=== PATIENT | male | born 1955 | race Hispanic/Latino ===

== ENCOUNTER 2017-05-31 15:26 | Inpatient (IN) | payer SELFPAY ==
[2017-05-31] MEDS ORDERED: NACL 0.9% 1000 ML 1,000 ML IV ONE ×3 (16:05→21:42)
--- NOTE | 2017-05-31 16:27 | Emergency Department Report ---
ED Abdominal Pain HPI - General Chief Complaint: Abdominal Pain Stated Complaint: ABD PAIN Time Seen by Provider: 05/31/17 16:08 Source: patient Mode of arrival: Ambulatory Limitations: No Limitations - History of Present Illness Initial Comments: 4-year-old male with past medical history of cirrhotic liver disease presenting to the ED complaining of abdominal pain. Also the pain started 1 day prior to ED arrival. Patient states pain is diffuse, crampy, nonradiating, no relaxing or worsening factors. Patient endorses one episode of dark bloody stools. Patient believes his pain is secondary to fluid buildup in his abdomen. He states the last time his pain has been similar he required drainage in the fluid in his abdomen. Pt denies: Pt denies: fever/chills, headache, neck pain ,chest pain, abdominal pain, N/V/D MD Complaint: abdominal pain -: Gradual Location: diffuse Radiation: none Migration to: no migration Severity: moderate Severity scale (0 -10): 6 Quality: fullness Consistency: constant Improves With: nothing Worsens With: nothing Associated Symptoms: nausea, melena. denies: vomiting, diarrhea, constipation, dysuria, hematemesis, hematochezia, hematuria, anorexia, syncope - Related Data Home Medications Medication Instructions Recorded Confirmed Last Taken Insulin Aspart Prot/Aspart(Nf) 30 unit SQ BID 08/08/13 07/11/16 Unknown [NovoLOG Mix 70/30 VIAL] Probenecid/Colchicine 100 mg PO DAILY 08/08/13 07/11/16 Unknown [Probenecid-Colchicine Tab] Previous Rx's Medication Instructions Recorded Last Taken Type Folic Acid [Folvite] 1 mg PO QDAY #30 tablet 08/11/13 Unknown Rx Nadolol [Corgard] 40 mg PO QDAY #30 tablet 08/11/13 Unknown Rx Nicotine [Habitrol] 21 mg TD DAILY #30 patch 08/11/13 Unknown Rx Pantoprazole [Protonix TAB] 40 mg PO QDAY #30 tablet 08/11/13 Unknown Rx Thiamine [Vitamin B-1] 100 mg PO QDAY #30 tablet 08/11/13 Unknown Rx Ferrous Sulfate [Feosol 325 MG tab] 325 mg PO BID #60 tablet 07/14/16 Unknown Rx Spironolactone [Aldactone] 25 mg PO QDAY #30 tablet 07/14/16 Unknown Rx oxyCODONE /ACETAMINOPHEN [Percocet 1 tab PO BID PRN #10 tablet 07/14/16 Unknown Rx 5/325 mg] Sulfamethoxazole/Trimethoprim 1 each PO BID #14 tablet 07/31/16 Unknown Rx [Bactrim DS TAB] Allergies Allergy/AdvReac Type Severity Reaction Status Date / Time codeine Allergy Rash Verified 01/28/15 10:28 ED Review of Systems ROS: Stated complaint: ABD PAIN Other details as noted in HPI Constitutional: denies: chills, fever Eyes: denies: eye pain, eye discharge, vision change ENT: denies: ear pain, throat pain Respiratory: denies: cough, shortness of breath, wheezing Cardiovascular: denies: chest pain, palpitations Endocrine: no symptoms reported Gastrointestinal: abdominal pain, nausea, melena. denies: diarrhea, constipation, hematemesis, hematochezia Genitourinary: denies: urgency, dysuria Musculoskeletal: denies: back pain, joint swelling, arthralgia Skin: denies: rash, lesions Neurological: denies: headache, weakness, paresthesias Psychiatric: denies: anxiety, depression Hematological/Lymphatic: denies: easy bleeding, easy bruising ED Past Medical Hx - Past Medical History Hx Hypertension: Yes Hx Congestive Heart Failure: Yes Hx Diabetes: Yes Hx Liver Disease: Yes Hx Arthritis: Yes Hx Asthma: No Hx COPD: Yes Additional medical history: esophageal varicies, gout, hep c, inguinal hernia - Surgical History Additional Surgical History: surgery for esophageal varicies - Social History Smoking Status: Never Smoker Substance Use Type: None - Medications Home Medications: Home Medications Medication Instructions Recorded Confirmed Last Taken Type Insulin Aspart Prot/Aspart(Nf) 30 unit SQ BID 08/08/13 07/11/16 Unknown History [NovoLOG Mix 70/30 VIAL] Probenecid/Colchicine 100 mg PO DAILY 08/08/13 07/11/16 Unknown History [Probenecid-Colchicine Tab] Folic Acid [Folvite] 1 mg PO QDAY #30 tablet 08/11/13 07/11/16 Unknown Rx Nadolol [Corgard] 40 mg PO QDAY #30 tablet 08/11/13 07/11/16 Unknown Rx Nicotine [Habitrol] 21 mg TD DAILY #30 patch 08/11/13 07/11/16 Unknown Rx Pantoprazole [Protonix TAB] 40 mg PO QDAY #30 tablet 08/11/13 07/11/16 Unknown Rx Thiamine [Vitamin B-1] 100 mg PO QDAY #30 tablet 08/11/13 07/11/16 Unknown Rx Ferrous Sulfate [Feosol 325 MG tab] 325 mg PO BID #60 tablet 07/14/16 Unknown Rx Spironolactone [Aldactone] 25 mg PO QDAY #30 tablet 07/14/16 Unknown Rx oxyCODONE /ACETAMINOPHEN [Percocet 1 tab PO BID PRN #10 tablet 07/14/16 Unknown Rx 5/325 mg] Sulfamethoxazole/Trimethoprim 1 each PO BID #14 tablet 07/31/16 Unknown Rx [Bactrim DS TAB] ED Physical Exam - General Limitations: No Limitations General appearance: alert, in no apparent distress - Head Head exam: Present: atraumatic, normocephalic - Eye Eye exam: Present: normal appearance - ENT ENT exam: Present: mucous membranes moist - Neck Neck exam: Present: normal inspection - Respiratory Respiratory exam: Present: normal lung sounds bilaterally. Absent: respiratory distress - Cardiovascular Cardiovascular Exam: Present: regular rate, normal rhythm. Absent: systolic murmur, diastolic murmur, rubs, gallop - GI/Abdominal GI/Abdominal exam: Present: distended, tenderness (diffuse mild tenderness ), normal bowel sounds, other (+ FLUID WAVE appreciated ) - Rectal Rectal exam: Present: deferred, normal rectal tone, heme (+) stool (dark brown stool ) - Extremities Exam Extremities exam: Present: normal inspection - Back Exam Back exam: Present: normal inspection - Neurological Exam Neurological exam: Present: alert, oriented X3 - Psychiatric Psychiatric exam: Present: normal affect, normal mood - Skin Skin exam: Present: warm, dry, intact, normal color. Absent: rash ED Course Vital Signs 05/31/17 05/31/17 05/31/17 15:52 18:31 19:43 Temperature 97.8 F Pulse Rate 115 H 114 H Pulse Rate [ Bilateral] Respiratory 16 16 Rate Respiratory Rate [Bilateral ] Blood Pressure 100/65 Blood Pressure 103/67 [Left] O2 Sat by Pulse 99 99 98 Oximetry 05/31/17 05/31/17 05/31/17 19:46 21:03 21:25 Temperature 98.1 F Pulse Rate 115 H Pulse Rate [ 116 H Bilateral] Respiratory 16 18 Rate Respiratory 23 Rate [Bilateral ] Blood Pressure Blood Pressure 96/86 [Left] O2 Sat by Pulse 100 Oximetry 05/31/17 05/31/17 05/31/17 22:54 23:09 23:39 Temperature 98.4 F 98.6 F 98.9 F Pulse Rate 116 H 114 H 109 H Pulse Rate [ Bilateral] Respiratory 22 22 19 Rate Respiratory Rate [Bilateral ] Blood Pressure 103/70 103/67 102/66 Blood Pressure [Left] O2 Sat by Pulse 99 100 100 Oximetry - Reevaluation(s) Reevaluation #1: 05/31/17 18:38 Patient resting comfortably, no complaints Reevaluation #2: 06/01/17 00:41 shortly prior to me Reevaluation #3: 05/31/17 22:44 the patient had episode of hematemesis in the ED. Large amount. He is still protecting his airway, states he is nauseous but has not urged to vomit again. I have notified CONRAD Segovia the patient had hematemesis. He recommends ocretodie drip and FFP. I will monitor closely. Pt is admitted, hospitalist will be informed Reevaluation #4: 06/01/17 00:46 Patient family states he is having chest pain. i have evaluated the Patient, he denies chest pain. Repeat EKG negative for STEMI. I suspect patient's chest pain was secondary to anemia. Dr. Luna hospitalists has been notified. She has ordered 2 units of packed red blood cells that will take a long time to come from the blood bank secondary to patient having antibodies to blood. They state they have a unit prepared from however. Need excess units did have to get from the [facility]. I will call Dr. Kapoor to inform Dr. Bond the patient's hemoglobin has dropped from 8 to 6. Patient's family has also asked me about hospice for the patient. I stated that at this hour it is unlikely that I would be able to obtain a hospice consult however I recommended to the family that they follow up in the morning with hospitalist. The family agrees to plan. Patient is resting comfortably. 06/01/17 00:48 ED Medical Decision Making - Lab Data Result diagrams: 05/31/17 21:58 05/31/17 21:51 - EKG Data -: EKG Interpreted by Me EKG shows normal: sinus rhythm, axis (normal), QRS complexes (98) Rate: tachycardia (110) - EKG Data Interpretation: no acute changes - Medical Decision Making 61-year-old male with history of liver cirrhosis presenting to the ED complaining of abdominal tightness secondary to ascites. 1) Abdominal pain Likely this is secondary to known ascites. Patient will be admitted to medical service fluid drained. No suspicion for SBP given patient has no fever,no abdominal rigidity, no abdominal tenderness. 2) GI bleed Patient had dark brown stool on my exam that was guaiac positive. I started him on a Protonix drip. I have consulted GI who is aware of patient. 3) Hyperkalemia pt has elevated potassium, no EKG changes noted. I will start him on hyperkalemic protocol and monitor potassium and glucose closely. Disposition: Patient admitted to hospitalist service, Dr. Titus accepting. Critical Care Time: Yes Critical care time in (mins) excluding proc time.: 40 Critical care attestation.: If time is entered above; I have spent that time in minutes in the direct care of this critically ill patient, excluding procedure time. Critical Care Time: 45 ED Disposition Clinical Impression: Hyperkalemia, GI bleed, Ascites, Abdominal distention Disposition: [id number] OP ADMIT IP TO THIS HOSP Is pt being admited?: Yes Does the pt Need Aspirin: No Condition: Stable
[2017-05-31 17:33] LABS: Eosinophils % (Auto) 0.1 % (0.0-4.3); Hematocrit 27.2 % (35.5-45.6); Hemoglobin 8.5 gm/dl (11.8-15.2); Mean Corpuscular HGB Conc 31 % (32-34); Mean Corpuscular Volume 73 fl (84-94); Platelet Count 121 K/mm3 (140-440); Red Blood Count 3.72 M/mm3 (3.65-5.03); Red Cell Distribution Width 18.5 % (13.2-15.2); White Blood Count 13.4 K/mm3 (4.5-11.0)
[2017-05-31 17:34] LABS: Mean Corpuscular Hemoglobin 23 pg (28-32)
[2017-05-31 17:49] LABS: Alanine Aminotransferase 100 units/L (7-56); Albumin 2.2 g/dL (3.9-5); Albumin/Globulin Ratio 0.6 %; Alkaline Phosphatase 87 units/L (35-129); Anion Gap 24 mmol/L; BUN/Creatinine Ratio 43; Blood Urea Nitrogen 39 mg/dL (9-20); Calcium 7.6 mg/dL (8.4-10.2); Carbon Dioxide 18 mmol/L (22-30); Chloride 100.1 mmol/L (98-107); Glucose 126 mg/dL (75-100); Lipase 24 units/L (13-60); Sodium 136 mmol/L (137-145); Total Protein 5.6 g/dL (6.3-8.2)
[2017-05-31 17:53] LABS: Potassium 6.5 mmol/L (3.6-5.0)
[2017-05-31] MEDS ORDERED: D50W (25GM) Syringe IV ONE (18:17)
[2017-05-31] MEDS ORDERED: PROVENTIL IH ONE (18:18)
--- NOTE | 2017-05-31 18:29 | History and Physical Report ---
History of Present Illness Chief complaint: My stomach hurts History of present illness: 61 YO Male with HTN, CHF, DM, ESLD, Cirrhosis, COPD, OA, Esophageal Varices, HCV , Gout, presents to ED for evaluation. Pt states that he has experienced abdominal pain over the past 1 day with worsening symptoms over the past 6 hours. Pt states that pain is 6-10/10, diffuse, crampy, nonradiating, no relaxing or alleviating factors. Patient acknowledges one episode of dark bloody stools. Patient acknowledges abdominal distention. He states the last time his pain has been similar he required drainage in the fluid in his abdomen. Pt denies fever, chills, CP, Palpitations, Syncope, productive cough, or recent ill contacts. Pt seen and evaluated in ED and found to have sepsis, and possible SBP. Past History Past Medical History: diabetes, hypertension, liver disease, seizures, stroke, other (variges) Past Surgical History: Other (Esophhageal varices) Social history: smoking Family history: hypertension Medications and Allergies Allergies Allergy/AdvReac Type Severity Reaction Status Date / Time codeine Allergy Rash Verified 01/28/15 10:28 Home Medications Medication Instructions Recorded Confirmed Last Taken Type Insulin Aspart Prot/Aspart(Nf) 30 unit SQ BID 08/08/13 07/11/16 Unknown History [NovoLOG Mix 70/30 VIAL] Probenecid/Colchicine 100 mg PO DAILY 08/08/13 07/11/16 Unknown History [Probenecid-Colchicine Tab] Folic Acid [Folvite] 1 mg PO QDAY #30 tablet 08/11/13 07/11/16 Unknown Rx Nadolol [Corgard] 40 mg PO QDAY #30 tablet 08/11/13 07/11/16 Unknown Rx Nicotine [Habitrol] 21 mg TD DAILY #30 patch 08/11/13 07/11/16 Unknown Rx Pantoprazole [Protonix TAB] 40 mg PO QDAY #30 tablet 08/11/13 07/11/16 Unknown Rx Thiamine [Vitamin B-1] 100 mg PO QDAY #30 tablet 08/11/13 07/11/16 Unknown Rx Ferrous Sulfate [Feosol 325 MG tab] 325 mg PO BID #60 tablet 07/14/16 Unknown Rx Spironolactone [Aldactone] 25 mg PO QDAY #30 tablet 07/14/16 Unknown Rx oxyCODONE /ACETAMINOPHEN [Percocet 1 tab PO BID PRN #10 tablet 07/14/16 Unknown Rx 5/325 mg] Sulfamethoxazole/Trimethoprim 1 each PO BID #14 tablet 07/31/16 Unknown Rx [Bactrim DS TAB] Active Meds: Active Medications Sodium Chloride (Nacl 0.9% 1000 Ml) 1,000 mls @ 250 mls/hr IV ONCE ONE Stop: 05/31/17 20:04 Last Admin: 05/31/17 16:10 Dose: 250 mls/hr Calcium Gluconate 2,000 mg/ (Sodium Chloride) 120 mls @ 240 mls/hr IV ONCE.ED ONE Stop: 05/31/17 19:29 Pantoprazole Sodium 80 mg/ (Sodium Chloride) 100 mls @ 10 mls/hr IV Q10H MIHAELA PRN Reason: 8 MG/HR Review of Systems Constitutional: weight gain, no fever, no chills, no sweats Ears, nose, mouth and throat: no ear pain, no ear discharge, no tinnitis, no decreased hearing, no nose pain, no nasal congestion Cardiovascular: shortness of breath Respiratory: no cough, no cough with sputum, no excessive sputum, no hemoptysis Gastrointestinal: abdominal pain, no nausea, no vomiting, no diarrhea Genitourinary Male: no hematuria, no flank pain, no discharge, no urinary frequency Rectal: no pain, no incontinence, no bleeding Musculoskeletal: no neck stiffness, no neck pain, no shooting arm pain, no arm numbness/tingling, no low back pain Integumentary: no rash, no pruritis, no redness, no sores, no wounds, no jaundice Neurological: no transient paralysis, no paralysis, no weakness, no parathesias , no numbness, no tingling, no seizures Psychiatric: no memory loss, no change in sleep habits, no sleep disturbances, no insomnia, no hypersomnia, no change in appetite, no change in libido Endocrine: no cold intolerance, no heat intolerance, no polyphagia, no excessive thirst, no polydipsia, no polyuria, no nocturia Hematologic/Lymphatic: no easy bruising, no easy bleeding Allergic/Immunologic: no urticaria, no allergic rhinitis, no wheezing Exam - Constitutional Vitals: Temp Pulse Resp BP Pulse Ox 97.8 F 115 H 16 100/65 99 05/31/17 15:52 05/31/17 15:52 05/31/17 15:52 05/31/17 15:52 05/31/17 15:52 General appearance: Present: mild distress - EENT Eyes: Present: PERRL, scleral icterus ENT: hearing intact, clear oral mucosa - Neck Neck: Present: supple, normal ROM, masses or JVD - Respiratory Respiratory: bilateral: diminished - Cardiovascular Heart Sounds: Present: S1 & S2. Absent: rub, click - Extremities Extremities: pulses symmetrical, No edema Extremity abnormal: edema Peripheral Pulses: within normal limits - Abdominal General gastrointestinal: Present: soft, tender, non-distended, normal bowel sounds Localized gastrointestinal: tender: diffuse, guarding: diffuse Male genitourinary: Present: normal - Integumentary Integumentary: Present: clear, warm, dry - Musculoskeletal Musculoskeletal: generalized weakness - Psychiatric Psychiatric: appropriate mood/affect, intact judgment & insight - Neurologic Neurologic: CNII-XII intact, moves all extremities Results - Labs CBC & Chem 7: 05/31/17 17:05 05/31/17 17:05 Labs: Abnormal lab results 05/31/17 05/31/17 Range/Units 17:05 17:05 WBC 13.4 H (4.5-11.0) K/mm3 Hgb 8.5 L (11.8-15.2) gm/dl Hct 27.2 L (35.5-45.6) % MCV 73 L (84-94) fl MCH 23 L (28-32) pg MCHC 31 L (32-34) % RDW 18.5 H (13.2-15.2) % Plt Count 121 L (140-440) K/mm3 Desha % (Auto) 11.6 H (0.0-7.3) % Desha # 1.6 H (0.0-0.8) K/mm3 Seg Neutrophils % 72.7 H (40.0-70.0) % Seg Neutrophils # 9.8 H (1.8-7.7) K/mm3 Sodium 136 L (137-145) mmol/L Potassium 6.5 H* (3.6-5.0) mmol/L Carbon Dioxide 18 L (22-30) mmol/L BUN 39 H (9-20) mg/dL Glucose 126 H (75-100) mg/dL Calcium 7.6 L (8.4-10.2) mg/dL Total Bilirubin 1.80 H (0.1-1.2) mg/dL AST 154 H (5-40) units/L ALT 100 H (7-56) units/L Total Protein 5.6 L (6.3-8.2) g/dL Albumin 2.2 L (3.9-5) g/dL Assessment and Plan - Patient Problems (1) Sepsis Current Visit: Yes Status: Acute Qualifiers: Sepsis type: sepsis due to unspecified organism Qualified Code(s): A41.9 - Sepsis, unspecified organism Plan to address problem: IV abx, IVF, supportive care, serial lactic acid, monitor uop q shift, blood cultures, (2) Cirrhosis of liver with ascites Current Visit: Yes Status: Acute Qualifiers: Hepatic cirrhosis type: H Plan to address problem: GI consulted, serial abdominal exam, IR consult for possible paracentesis (3) Anemia Current Visit: Yes Status: Acute Qualifiers: Anemia type: A Iron deficiency anemia type: I Vitamin B12 deficiency anemia type: V Folate deficiency anemia type: F Bone marrow failure anemia type: B Hemolytic anemia type: H Other causes of anemia: O Chronic kidney disease stage: C Plan to address problem: Hgb currently stable, GI consulted, continue Iron replacement therapy, serial cbc, No transfusion at this time due to HGB above 7.0 (4) Diabetes Current Visit: Yes Status: Acute Qualifiers: Diabetes mellitus type: D Diabetes mellitus complication status: D Diabetes mellitus complication detail: D Diabetic retinopathy severity: D Proliferative retinopathy type: P Diabetes mellitus macular edema: D Diabetes mellitus nursing home insulin use: D Laterality: L Chronic kidney disease stage: C Plan to address problem: ADA diet, insulin, accu check (5) GI bleed Current Visit: Yes Status: Acute Qualifiers: GI bleed type/associated pathology: G Gastritis type: G Plan to address problem: serial cbc, HGB currently stable, no active bleeding, GI consulted, ppi therapy , (6) SBP (spontaneous bacterial peritonitis) Current Visit: Yes Status: Suspected Plan to address problem: IV abx, serial abdominal exam, consult GI, serial lactic acid level (7) DVT prophylaxis Current Visit: Yes Status: Acute
[2017-05-31] MEDS ORDERED: DULCOLAX PR PRN (18:30)
[2017-05-31] MEDS ORDERED: ZOFRAN IV PRN (18:30)
[2017-05-31] MEDS ORDERED: TYLENOL PO PRN (18:30)
[2017-05-31] MEDS ORDERED: VANCOMYCIN VIAL IV ONE (18:30)
[2017-05-31] MEDS ORDERED: MILK OF MAGNESIA PO PRN (18:30)
[2017-05-31] MEDS ORDERED: PROVENTIL IH PRN (18:30)
[2017-05-31] MEDS ORDERED: PERCOCET 5/325 PO PRN (18:35)
[2017-05-31] MEDS ORDERED: CALCIUM GLUCONATE 2,000 MG in NACL 0.9% 100 ML IV ONE (19:00)
[2017-05-31] MEDS ORDERED: VANCOMYCIN PHARMACY TO DOSE IV SCH (19:00)
[2017-05-31] MEDS ORDERED: D50W (25GM) Vial IV ONE (19:00)
[2017-05-31] MEDS ORDERED: PROTONIX 80 MG in NACL 0.9% 100 ML IV SCH (19:00)
[2017-05-31 19:20] LABS: INR 1.6 (0.87-1.13)
[2017-05-31 19:21] LABS: Partial Thromboplastin Time 38.1 Sec. (24.2-36.6)
[2017-05-31] MEDS: VANCOMYCIN 1,250 MG in NACL 0.9% 250ML 250 ML IV SCH (19:38)
[2017-05-31] MEDS ORDERED: ZOFRAN IV ONE (20:32)
[2017-05-31] MEDS ORDERED: MORPHINE IV ONE ×2 (20:33→21:25)
[2017-05-31] MEDS ORDERED: MORPHINE ONE (20:35)
[2017-05-31] MEDS ORDERED: NACL 0.9% 500 ML 500 ML IV ONE (21:02)
[2017-05-31] MEDS ORDERED: REGLAN ONE (21:22)
[2017-05-31] MEDS ORDERED: REGLAN IV ONE (21:42)
[2017-05-31] MEDS ORDERED: SandoSTATIN 500 MCG in NACL 0.9% 100 ML IV SCH (22:00)
[2017-05-31] MEDS ORDERED: FEOSOL PO SCH (22:00)
[2017-05-31] MEDS ORDERED: ASPART SQ SCH (22:00)
[2017-05-31] MEDS ORDERED: INSULIN ASPART PROT SQ SCH (22:00)
[2017-05-31] MEDS: ZOSYN/NS 4.5GM/100ML 4.5 GM/100 ML VIAL IV SCH (22:35)
[2017-05-31 22:38] LABS: Calcium 7.8 mg/dL (8.4-10.2); Chloride 101.3 mmol/L (98-107); Potassium 5.5 mmol/L (3.6-5.0)
[2017-05-31 22:45] LABS: Hematocrit 21.9 % (35.5-45.6); Hemoglobin 6.6 gm/dl (11.8-15.2)
[2017-05-31] MEDS ORDERED: NACL 0.9% 500 ML 500 ML IV NR (23:22)
[2017-06-01] MEDS ORDERED: NACL 0.9% 500 ML 500 ML IV ONE ×2 (00:40→05:20)
[2017-06-01] MEDS ORDERED: PROTONIX 80 MG in NACL 0.9% 100 ML IV SCH (05:00)
[2017-06-01] MEDS: ZOSYN/NS 4.5GM/100ML 4.5 GM/100 ML VIAL IV SCH (06:00)
[2017-06-01] MEDS: VANCOMYCIN 1,250 MG in NACL 0.9% 250ML 250 ML IV SCH (07:00)
--- NOTE | 2017-06-01 08:00 | Progress Note ---
Assessment and Plan Assessment and plan: 60 years old male with decompensated cirrhosis secondary to hepatitis C and remote alcohol abuse, with esophageal varices status post banding x2, also, with hypertension, diabetes, gout, presented for significant increase of his abdominal girth associated with pain that worsened progressively and lately associated dark bloody stools and one episode of hematemesis Assessment and Plan 1. Upper GI bleed Likely secondary to esophageal varices/? gastritis Started on Octreotide drip, Nadolol, Protonix drip Keep NPO GI consulted for possible EGD/banding if necessary 2. Acute blood loss anemia Anemia - combination of acute blood loss anemia and chronic conditions ( cirrhosis/nutritional deficiencies) Hemoglobin this morning 6.6 Receiving 2 units PRBCs Continue to closely monitor H&H and further transfuse if needed 3. Coagulopathy Secondary to end-stage liver disease Monitor platelets and INR Consider vitamin K if worsening 4. Thrombocytopenia Secondary to end-stage liver disease Monitor 5. Decompensated cirrhosis Secondary to alcohol abuse and hepatitis C With esophageal varices - status post banding 2 With large ascites Will obtain diagnostic (r/o SBP) and therapeutic paracentesis US to r/o hepatic carcinoma Started on beta babar to reduce portal hypertension Add diuretics 6. Hyperkalemia Treat medically and recheck potassium level 7. Acute renal failure Likely secondary to vasomotor nephropathy due to volume depletion post GI bleed Will use diuretics with caution and monitor renal function/electrolytes closely 8. Metabolic acidosis Secondary to end-stage liver disease/renal failure 9. Acute hypoxic respiratory failure Due to large amount of ascites Scheduled for therapeutic paracentesis Supplemental oxygen, incentive spirometry 10. 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 Diabetes BS in 100s Hold long-acting insulin as he is NPO Accu-Cheks and SSI if needed 12. Hypertension Start diuretics and beta babar for decompensated cirrhosis with esophageal varices Monitor BP and adjust regimen accordingly 13. Gout Continue colchicine 14. Tobacco use Nicotine patch Counseled regarding importance of quitting 15. DVT prophylaxis SCDs. No pharmacological agent given GI bleed/anemia/thrombocytopenia cc 45 min History Interval history: agitated, restless, in respiratory distress; having dark bloody stools, no hematemesis this morning; receiving PRBC transfusion daughter at [facility] Hospitalist Physical - Constitutional Vitals: Temp Pulse Resp BP Pulse Ox 98.2 F 61 18 104/46 99 06/01/17 06:16 06/01/17 06:16 06/01/17 06:16 06/01/17 06:16 06/01/17 06:16 General appearance: Present: mild distress, cachectic, disheveled - EENT Eyes: Present: PERRL, EOM intact, scleral icterus. Absent: conjunctival injection - Neck Neck: Present: supple. Absent: enlarged thyroid, masses or JVD - Respiratory Respiratory effort: labored Respiratory: bilateral: diminished (bibasilar), negative: rhonchi, wheezing - Cardiovascular Rhythm: other (tachycardic) Heart Sounds: Present: S1 & S2. Absent: systolic murmur - Extremities Extremities: no ischemia Extremity abnormal: edema (3+) - Abdominal General gastrointestinal: tender, distended, hypoactive bowel sounds - Integumentary Integumentary: Present: jaundice, pale. Absent: rash, clammy - Psychiatric Psychiatric: agitated - Neurologic Neurologic: CNII-XII intact, no focal deficits Results - Labs CBC & Chem 7: 05/31/17 21:58 05/31/17 21:51 Labs: Laboratory Last Values WBC 13.4 K/mm3 (4.5-11.0) H 05/31/17 17:05 RBC 3.72 M/mm3 (3.65-5.03) 05/31/17 17:05 Hgb 6.6 gm/dl (11.8-15.2) L 05/31/17 21:58 Hct 21.9 % (35.5-45.6) L 05/31/17 21:58 MCV 73 fl (84-94) L 05/31/17 17:05 MCH 23 pg (28-32) L 05/31/17 17:05 MCHC 31 % (32-34) L 05/31/17 17:05 RDW 18.5 % (13.2-15.2) H 05/31/17 17:05 Plt Count 121 K/mm3 (140-440) L 05/31/17 17:05 Lymph % (Auto) 14.6 % (13.4-35.0) 05/31/17 17:05 [place] % (Auto) 11.6 % (0.0-7.3) H 05/31/17 17:05 Eos % (Auto) 0.1 % (0.0-4.3) 05/31/17 17:05 Baso % (Auto) 1.0 % (0.0-1.8) 05/31/17 17:05 Lymph # 2.0 K/mm3 (1.2-5.4) 05/31/17 17:05 [place] # 1.6 K/mm3 (0.0-0.8) H 05/31/17 17:05 Eos # 0.0 K/mm3 (0.0-0.4) 05/31/17 17:05 Baso # 0.1 K/mm3 (0.0-0.1) 05/31/17 17:05 Seg Neutrophils % 72.7 % (40.0-70.0) H 05/31/17 17:05 Seg Neutrophils # 9.8 K/mm3 (1.8-7.7) H 05/31/17 17:05 PT 19.8 Sec. (12.2-14.9) H 05/31/17 18:25 INR 1.60 (0.87-1.13) H 05/31/17 18:25 APTT 38.1 Sec. (24.2-36.6) H 05/31/17 18:25 Sodium 138 mmol/L (137-145) 05/31/17 21:51 Potassium 5.5 mmol/L (3.6-5.0) H 05/31/17 21:51 Chloride 101.3 mmol/L (98-107) 05/31/17 21:51 Carbon Dioxide 14 mmol/L (22-30) L 05/31/17 21:51 Anion Gap 28 mmol/L 05/31/17 21:51 BUN 42 mg/dL (9-20) H 05/31/17 21:51 Creatinine 1.3 mg/dL (0.8-1.5) 05/31/17 21:51 Estimated GFR 56 ml/min 05/31/17 21:51 BUN/Creatinine Ratio 32 % 05/31/17 21:51 Glucose 135 mg/dL (75-100) H 05/31/17 21:51 POC Glucose 153 (70-105) H 05/31/17 18:32 Lactic Acid 14.50 mmol/L (0.7-2.0) H* 06/01/17 Unknown Calcium 7.8 mg/dL (8.4-10.2) L 05/31/17 21:51 Total Bilirubin 1.80 mg/dL (0.1-1.2) H 05/31/17 17:05 AST 154 units/L (5-40) H 05/31/17 17:05 ALT 100 units/L (7-56) H 05/31/17 17:05 Alkaline Phosphatase 87 units/L (35-129) 05/31/17 17:05 Troponin T 0.028 ng/mL (0.00-0.029) 06/01/17 02:27 Total Protein 5.6 g/dL (6.3-8.2) L 05/31/17 17:05 Albumin 2.2 g/dL (3.9-5) L 05/31/17 17:05 Albumin/Globulin Ratio 0.6 % 05/31/17 17:05 Lipase 24 units/L (13-60) 05/31/17 17:05 Blood Type O POSITIVE 05/31/17 18:25 Antibody Screen TNR 05/31/17 18:25 DEMARCUS Antibody Screen Negative 05/31/17 18:25 Crossmatch See Detail 05/31/17 18:25 - Imaging and Cardiology Chest x-ray: image reviewed Abdominal x-ray: image reviewed
[2017-06-01] MEDS ORDERED: WATER FOR IRRIG STERILE IR ONE (08:30)
--- NOTE | 2017-06-01 09:49 | XRay Report ---
ABDOMINAL SERIES WITH CXR THREE VIEWS: 05/31/17 18:30:00 CLINICAL: Ascites and respiratory distress. FINDINGS: Supine and upright views demonstrate moderate distention of both large and small bowel loops in the central abdomen and moderate distention of the stomach. The periphery of the abdomen is hazy and consistent with ascites. No tubes or lines. No pneumoperitoneum. No mass or suspicious calcifications.Degenerative change of the spine.The chest is negative with except for mild right lower lobe subsegmental atelectasis. The lungs are underexpanded because of the ascites. IMPRESSION: Ascites and right lower lobe subsegmental atelectasis.
[2017-06-01] MEDS ORDERED: COLCHICINE PO SCH (10:00)
[2017-06-01] MEDS ORDERED: ALDACTONE PO SCH (10:00)
[2017-06-01] MEDS ORDERED: FOLVITE PO SCH (10:00)
[2017-06-01] MEDS ORDERED: VITAMIN B-1 PO SCH (10:00)
[2017-06-01] MEDS ORDERED: PROBENECID PO SCH ×2 (10:00)
[2017-06-01] MEDS ORDERED: NON-FORMULARY (Nadolol [Corgard] 40 MG) PO SCH (10:00)
[2017-06-01] MEDS ORDERED: NACL 0.9% 1000 ML 1,000 ML IV SCH (10:00)
[2017-06-01] MEDS ORDERED: CORGARD PO SCH (10:00)
[2017-06-01] MEDS ORDERED: PROTONIX PO SCH (10:00)
[2017-06-01] MEDS ORDERED: COLCRYS PO SCH (10:00)
[2017-06-01] MEDS ORDERED: HABITROL TD SCH (10:00)
[2017-06-01] MEDS ORDERED: AMIDATE IV ONE (10:07)
--- NOTE | 2017-06-01 10:17 | Anesthesia Consultation ---
Anesthesia Consult and Med Hx Date of service: 06/01/17 - Airway Anesthetic Teeth Evaluation: Poor ROM Head & Neck: Adequate Mental/Hyoid Distance: Adequate Mallampati Class: Class II Intubation Access Assessment: Probably Good - Pulmonary Exam CTA: Yes - Cardiac Exam Cardiac Exam: RRR - Pre-Operative Health Status ASA Pre-Surgery Classification: ASA4 Proposed Anesthetic Plan: MAC - Pulmonary Hx Smoking: Yes Hx Asthma: No COPD: Yes Hx Pneumonia: No - Cardiovascular System Hx Hypertension: Yes - Gastrointestinal Hx Gastroesophageal Reflux Disease: Yes - Endocrine Hx End Stage Renal Disease: No Hx Cirrhosis: Yes Hx Liver Disease: Yes (ESLD) - Hematic Hx Anemia: Yes - Other Systems Hx Alcohol Use: Yes - Additional Comments Anesthesia Medical History Comments: CHF. Varices, Gout
--- NOTE | 2017-06-01 10:17 | Anesthesia Day of Surgery ---
Anesthesia Day of Surgery - Day of Surgery Patient Examined: Yes Patient H&P Reviewed: Yes Patient is NPO: Yes
[2017-06-01] MEDS ORDERED: DIPRIVAN 10 MG/ML IV ONE (11:08)
--- NOTE | 2017-06-01 11:17 | Post Operative Note ---
Pre-op diagnosis: gi bleed Post-op diagnosis: same Findings: EGD: grade III varices with active bleeding - banding x 5 performed - otherwise benign Procedure: EGD w/ banding Anesthesia: MAC Surgeon: SUSAN BARRETT Estimated blood loss: none Pathology: none Specimen disposition: to lab Condition: stable Disposition: ICU
[2017-06-01] MEDS ORDERED: NOVOLOG SUB-Q SCH (12:00)
[2017-06-01] MEDS ORDERED: PNEUMOVAX 23 IM ONE (12:00)
[2017-06-01] MEDS ORDERED: VERSED ONE (12:13)
[2017-06-01] MEDS ORDERED: ZEMURON IV ONE (12:13)
[2017-06-01] MEDS ORDERED: HESPAN 500 ML IV ONE (12:46)
[2017-06-01 13:34] LABS: ABG HCO3 5.4 mmol/L (20.0-26.0); ABG Oxygen Saturation 99.5 % (95.0-99.0); ABG PCO2 27.6 mm Hg
[2017-06-01 13:47] LABS: ABG PH 6.908 pH Units (7.350-7.450)
[2017-06-01 13:48] LABS: ABG PO2 353.5 mm Hg (80.0-90.0)
--- NOTE | 2017-06-01 14:08 | XRay Report ---
AP CHEST :06/01/17 12:57 CLINICAL: Post intubation. COMPARISON:03/29/13 FINDINGS: The endotracheal tube is in satisfactory position. The heart is normal size. Central vascular prominence is partially due to less than optimal expansion of the lungs. Bibasal subsegmental atelectasis. No pneumothorax. IMPRESSION: Satisfactory position of the endotracheal tube.Bibasal subsegmental atelectasis and central vascular congestion.
[2017-06-01] MEDS ORDERED: ATROPINE 0.1% (CARDIAC) ONE (14:20)
[2017-06-01] MEDS ORDERED: SODIUM BICARBONATE IV ONE ×4 (14:20→15:53)
[2017-06-01] MEDS ORDERED: ADRENALIN ONE ×2 (14:20→15:53)
[2017-06-01 14:59] LABS: Mean Corpuscular HGB Conc 29 % (32-34); Mean Corpuscular Volume 89 fl (84-94); Platelet Count 107 K/mm3 (140-440); Red Blood Count 1.58 M/mm3 (3.65-5.03); Red Cell Distribution Width 19.9 % (13.2-15.2); White Blood Count 11.2 K/mm3 (4.5-11.0)
[2017-06-01] MEDS ORDERED: D5NS IV SCH (15:00)
[2017-06-01] MEDS ORDERED: SODIUM BICARBONATE IV SCH (15:00)
--- NOTE | 2017-06-01 15:07 | Event Note ---
Date: 06/01/17 CPR note I was called to respond to a code in progress. Nurses informed me that the patient "bradyed down". When I stated verbal orders were obtained from Dr. Moreira. I found the patient with CPR in progress. When I requested a brief halt to review a rhythm a bradycardic rhythm was present. Pulses were obtained. The patient was hypotensive. I ordered additional medications to include atropine and epinephrine. Patient already received bicarbonate epinephrine and 2 Amps of D50 I am told. I am also informed that the patient just came from the PACU after a "banding procedure". He has a history of cirrhosis. I am told that his hemoglobin was found to be 6. He was transfused 1 unit already and 2 other units are pending. The patient did achieve a normal blood pressure of about 120/70. He has not had cirrhosis and coagulopathy. I additionally placed a long 18-gauge sheath in his external jugular vein on the left. I am hesitant to place a central line in a patient with coagulopathy now and a normal blood pressure. He was left to the guidance of Dr. Yoder the hospitalist who was present. I did instruct the nurses to transfuse the additional 2 units and give the patient a volume bolus. Impression Cardiopulmonary arrest End-stage liver disease Procedure CPR Left external jugular long line Plan Further care for hospitalist staff.
[2017-06-01 15:11] LABS: INR 4.41 (0.87-1.13)
[2017-06-01 15:17] LABS: Mean Corpuscular Hemoglobin 25 pg (28-32)
[2017-06-01 15:21] LABS: Albumin 1.5 g/dL (3.9-5); Albumin/Globulin Ratio 0.8 %; Bilirubin,Total 1.9 mg/dL (0.1-1.2); Chloride 99.7 mmol/L (98-107); Total Protein 3.5 g/dL (6.3-8.2)
[2017-06-01 15:25] VITALS: BP 124/74
[2017-06-01 15:37] LABS: Potassium 6.6 mmol/L (3.6-5.0)
[2017-06-01] MEDS ORDERED: D50W (25GM) Syringe IV ONE (15:41)
[2017-06-01] MEDS ORDERED: LEVOPHED DRIP 4 MG/NS 250 ML 4 MG/250 ML BAG IV ONE (15:51)
[2017-06-01] MEDS ORDERED: CALCIUM CHLORIDE IV ONE (15:53)
[2017-06-01] MEDS ORDERED: SODIUM BICARBONATE 150 MEQ in D5W 1,000 ML IV SCH (16:00)
[2017-06-01] MEDS ORDERED: KIONEX PR ONE (16:00)
[2017-06-01] MEDS ORDERED: CALCIUM GLUCONATE 2,000 MG in NACL 0.9% 100 ML IV ONE (16:00)
--- NOTE | 2017-06-01 16:03 | Event Note ---
Date: 06/01/17 Patient was intubated by me malu nunn in PACU after GI pocedure EGD with variceal banding. Post procedure he did not regain consciousness and breathing was agonal. Saturation was good although he did not have a good waveform on pulse oximeter. I decided to intubate in order to protect his airway due to unresponsiveness as well as his risk of variceal rupture. Patient was given versed 2mg and rocuronium 50mg iv for intubation. Direct laryngoscopy with mac 3 blade produced grade 1 view of cords. 7.5 ett passed easily through cords. Dr. Moreira notified of patient status post intubation
--- NOTE | 2017-06-01 16:06 | XRay Report ---
FINAL REPORT PROCEDURE: XR CHEST 1V AP TECHNIQUE: Chest radiograph anteroposterior view. CPT 51545 HISTORY: left jugular TLC COMPARISON: None FINDINGS: No central line is seen. There is a endotracheal tube, tip at the superior clavicular head level. The trachea is midline. The heart is normal in size. Mild bibasilar airspace disease is present. There is no evident pneumothorax or pleural fluid. The thoracic cage is intact. Mild degenerative changes of the dorsal spine and shoulders is present. IMPRESSION: Endotracheal tube in good position. Mild bibasilar airspace disease subsegmental atelectasis with or without associated infiltrate.
--- NOTE | 2017-06-01 16:27 | Event Note ---
Date: 06/01/17 CODE BLUE multiple times
--- NOTE | 2017-06-01 16:28 | Death Summary ---
Summary - Providers Date of service: 06/01/17 Consults: 06/01/17 07:43 Consult to Physician [CONS] Stat Consulting Provider: SUSAN LOOMIS Reason For Exam: UGIB/esoph varices/cirrhosis Place consult to:: NAKUL Gastro/dr. isabelle loomis Notified:: DR. Isabelle LOOMIS Phone number called:: [phone] Was contact made?: Yes If yes, spoke with:: GILDARDO Time called:: 07:47 Comment:: DR. BURRIS SPOKE WITH DR. Isabelle LOOMIS 06/01/17 11:22 Consult to Physician [CONS] Routine Consulting Provider: Reason For Exam: UGIB, esoph verices s/p banding Place consult to:: Dr. Moreira 06/01/17 12:41 Consult to Physician [CONS] Stat Consulting Provider: Reason For Exam: vent Place consult to:: Sherry Moreira Notified:: Sherry Moreira Attending: ZENY BURRIS - summary Date of admission: 05/31/17 18:30 Date of : 06/01/17 (16:05) Reason for admission: abdominal pain, hematemesis, melena
--- NOTE | 2017-06-02 10:43 | Consultation ---
DATE OF CONSULTATION: 06/01/2017 INDICATION: 1. GI bleed. 2. Cirrhosis. HISTORY OF PRESENT ILLNESS: The patient is a 61-year-old white male with history of hypertension, diabetes, end-stage liver disease associated with cirrhosis, COPD, obstructive sleep apnea. The patient has had a history of hep C and esophageal varices in the past. The patient presented with abdominal pain and reported about of coffee-ground emesis. The patient is reportedly with no further emesis before coming to the Emergency Room. The patient denies melena, denies weight loss. He does report abdominal distention. 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 Denies any other specific problems or complaints. The patient was subsequently seen in the Emergency Room and GI consulted. PAST MEDICAL HISTORY: 1. Diabetes. 2. Hypertension. 3. Hep C. 4. History of varices. MEDICATIONS: See chart. ALLERGIES: CODEINE. SOCIAL HISTORY: Smoker. FAMILY HISTORY: Negative for colon cancer. REVIEW OF SYSTEMS: GENERAL: Reports weakness. HEENT: No visual complaints or tinnitus. PULMONARY: No shortness of breath, chest pain. GASTROINTESTINAL: Reports abdominal pain and swelling as well as coffee emesis. All points of 13-point review of systems is otherwise negative. PHYSICAL EXAMINATION: VITAL SIGNS: Temperature of 98.4, pulse 82, respirations 18, blood pressure 122/98. GENERAL: Somewhat under-nourished white male, in no acute distress. HEENT: Pupils equal, round, reactive. PULMONARY: Clear. CARDIOVASCULAR: Regular rate, rhythm. ABDOMEN: Distended. SKIN: No obvious rashes. LABORATORY DATA: Pertinent for white count of 13.4, hemoglobin and hematocrit of 8.5 and 27.2, platelet count of 121. Chem-7; sodium of 137, potassium 6.5, chloride 100, CO2 of 18, BUN and creatinine of 39 and 0.9, total bilirubin of 1.8, AST, ALT of 154 and 100, alkaline phosphatase of 87. ASSESSMENT: A 61-year-old white male with history of hepatitis C and history of cirrhosis with history of variceal bleed, now presented with abdominal distention with pain and reported coffee emesis. I have discussed with the Emergency Room staff and the patient should be started on octreotide drip as well as PPI IV. Management as noted below. PLAN: 1. Follow hematocrit and transfuse as needed, but would not transfuse for hemoglobin over 8. 2. Octreotide drip. 3. N.p.o. 4. Plan EGD today. 5. The patient will require paracentesis prior to discharge. 6. Follow further recommendation based on results of the above. JOB# [id number] CAB/NTS
--- NOTE | 2017-06-03 10:19 | Operative Report ---
PROCEDURE: EGD with variceal banding. INDICATION: 1. GI bleed. 2. Cirrhosis. MEDICATIONS: Propofol per PROPOSAL ANALYST. COMPLICATIONS: Hypotension and intubation. DESCRIPTION OF PROCEDURE: Procedure was done in the OR room. The patient had the procedure discussed with him at length. All risks, complications, and benefits were discussed after which the patient signed for the procedure to be performed. The patient was placed in left lateral decubitus position. Mouth block was placed in the patient's oral cavity. After adequate sedation medication as above, endoscope placed in the mouth and brought to the level of the second portion of duodenum. Retroflexion view performed. The patient's vital signs remained stable throughout the procedure. FINDINGS: The distal half of the esophagus showed grade 3 varices with a couple of red spots and red wheals. There was a medium hiatal hernia at GE junction at 40 cm from the gums. There was a large amount of old coffee ground like material noted in the stomach body. The stomach and remaining duodenum otherwise appeared benign. ____ the endoscope. Upon reinsertion of the endoscope, the patient started to bleed from active varices. There was a large amount of bleeding during the procedure from ____. The regular endoscope was to be removed and a bleeder scope inserted for suctioning of large amount of blood that was noted actively during the procedure. The endoscope was then able to be reinserted and 5 bands were placed in the distal esophagus with cessation of bleeding. The patient's vital signs for the most part remained stable during the procedure with both PROPOSAL ANALYST and anesthesia within the room. Procedure was then completed at that time. It was noted after the procedure ____ patient became hypotensive with decrease saturation and had to be intubated by Anesthesia staff. The patient was then to be transferred to the ICU, which actually already been determined during the procedure that he needed to be so. No further interventions were performed. IMPRESSION: 1. Esophageal varices with active bleeding of a large amount of blood during the procedure with variceal bands placed with cessation of bleeding. 2. Hiatal hernia. 3. Large amount of old blood in the stomach. 4. Otherwise benign EGD. 5. Post-procedure hypotension ____ requiring intubation. RECOMMENDATIONS: 1. ICU management. 2. Octreotide drip. 3. PPI IV. 4. Pulmonary consult. 5. Further recommendation based on progress. JOB# [id number] LUIS/PAOLA
[2017-06-03] MEDS ORDERED: NACL 0.9% 500 ML ONE (14:59)
[2017-06-03] MEDS ORDERED: NACL 0.9% 1000 ML ONE (14:59)
== END 2017-06-01 17:37 | DRG 871 ==
LOC: ED 15:26 → 3A 18:30 → CC1 06-01 13:39
PROVIDERS: ADMIT Internal Medicine; ATTEND Internal Medicine
PROC: 30233L1 Transfusion of Nonautologous Fresh Plasma into Peripheral Vein, Percutaneous Approach (ICD-10-PCS; principal; 2017-05-31)
PROC: 30233N1 Transfusion of Nonautologous Red Blood Cells into Peripheral Vein, Percutaneous Approach (ICD-10-PCS; 2017-05-31)
PROC: 30233K1 Transfusion of Nonautologous Frozen Plasma into Peripheral Vein, Percutaneous Approach (ICD-10-PCS; 2017-05-31)
PROC: 06L38CZ Occlusion of Esophageal Vein with Extraluminal Device, Via Natural or Artificial Opening Endoscopic (ICD-10-PCS; 2017-06-01)
PROC: 4A033R1 Measurement of Arterial Saturation, Peripheral, Percutaneous Approach (ICD-10-PCS; 2017-06-01)
PROC: 5A1935Z Respiratory Ventilation, Less than 24 Consecutive Hours (ICD-10-PCS; 2017-06-01)
PROC: 0BH17EZ Insertion of Endotracheal Airway into Trachea, Via Natural or Artificial Opening (ICD-10-PCS; 2017-06-01)
DX: A41.9 Sepsis, unspecified organism (principal); K65.2 Spontaneous bacterial peritonitis; J96.01 Acute respiratory failure with hypoxia; E43 Unspecified severe protein-calorie malnutrition; I85.01 Esophageal varices with bleeding; D62 Acute posthemorrhagic anemia; D68.9 Coagulation defect, unspecified; N17.9 Acute kidney failure, unspecified; E11.9 Type 2 diabetes mellitus without complications; K21.9 Gastro-esophageal reflux disease without esophagitis; J44.9 Chronic obstructive pulmonary disease, unspecified; K70.40 Alcoholic hepatic failure without coma; M10.9 Gout, unspecified; M19.90 Unspecified osteoarthritis, unspecified site; K70.31 Alcoholic cirrhosis of liver with ascites; E87.5 Hyperkalemia; Z71.6 Tobacco abuse counseling; Z86.73 Personal history of transient ischemic attack (TIA), and cerebral infarction without residual deficits; Z87.891 Personal history of nicotine dependence; Z82.49 Family history of ischemic heart disease and other diseases of the circulatory system; Z88.5 Allergy status to narcotic agent
CPT/HCPCS: 36415; 36600; 71010; 74022; 80048; 80053; 82140; 82803; 82962; 83690; 84484; 85014; 85018; 85025; 85027; 85610; 85730; 86850; 86900; 86901; 86922; 87040; 90732; 92950; 93005; 93010; 94002; 94003; 94760; C9113; J0171; J0461; J0610; J1815; J2250; J2270; J2354; J2405; J2543; J2704; J2765; J3370; J7030; J7040; J7042; J7050; P9016; P9017